=== PATIENT | female | born 1980 | race Caucasian/White ===

== ENCOUNTER 2016-09-26 19:44 | Emergency (ER) | payer BC ==
[2016-09-26 19:51] VITALS: BP 141/85
--- NOTE | 2016-09-26 23:51 | ED ---
Skin Complaint - HPI Summary HPI Summary: Pt here w/ laceration to Lt thumb while using an ax tonight. Cut tip of finger off and now has bleeding and throbbing pain. Has been applying pressure and elevating. No meds prior to arrival. Denies numbness, tingling, weakness. Imms are UTD. - History of Current Complaint Chief Complaint: EDLacSutureRecheck Time Seen by Provider: 09/26/16 21:52 Stated Complaint: LT THUMB LAC Hx Obtained From: Patient Pain Intensity: 4 - Allergy/Home Medications Allergies/Adverse Reactions: Allergies Allergy/AdvReac Type Severity Reaction Status Date / Time No Known Allergies Allergy Verified 09/26/16 20:30 PMH/Surg Hx/FS Hx/Imm Hx Previously Healthy: Yes Endocrine/Hematology History: Denies: Hx Anticoagulant Therapy, Hx Blood Disorders Infectious Disease History: No Infectious Disease History: Denies: Traveled Outside the [place] in Last 30 Days - Social History Alcohol Use: Daily Hx Substance Use: No Substance Use Type: Reports: None Hx Tobacco Use: No Smoking Status (MU): Never Smoked Tobacco Review of Systems Musculoskeletal: Other - tip of finger hurts Skin: Other - see HPI Neurological: Negative Positive: Anxious All Other Systems Reviewed And Are Negative: Yes Physical Exam Triage Information Reviewed: Yes Vital Signs On Initial Exam: Initial Vitals Temp Pulse Resp BP Pulse Ox 98.1 F 97 16 141/85 100 09/26/16 19:48 09/26/16 19:48 09/26/16 19:48 09/26/16 19:48 09/26/16 19:48 Vital Signs Reviewed: Yes Appearance: Positive: Well-Appearing, Well-Nourished, Pain Distress Skin: Positive: Warm - Lt thumb with active bleeding from avulsed tissue of Lt distal dorsal thumb Eyes: Positive: EOMI ENT: Positive: Hearing grossly normal Respiratory/Lung Sounds: Positive: Breath Sounds Present Cardiovascular: Positive: Pulses are Symmetrical in both Upper and Lower Extremities Musculoskeletal: Positive: Normal, Strength/ROM Intact Neurological: Positive: Normal, Sensory/Motor Intact - hypersensitive over Lt thumb tip, Alert, Oriented to Person Place, Time Psychiatric: Positive: Anxious Procedures - Laceration/Wound Repair 1 Location: upper extremity - Lt thumb - avulsed skin Description: Irregular - avulsion Anesthesia: Digital - bupivocaine Length, Depth and Shape: 5mm area Betadine Prep?: No Irrigated w/ Saline (ccs): 50 Laceration/Wound Explored: clean Layer Closure?: No Sterile Dressing Applied?: Yes - surgicel to control bleeding, xeroform and sterile gauze with coban pressur Diagnostics - Vital Signs Vital Signs Temp Pulse Resp BP Pulse Ox 09/26/16 20:30 98.1 F 97 16 141/85 100 09/26/16 19:48 98.1 F 97 16 141/85 100 - Laboratory Lab Statement: Any lab studies that have been ordered have been reviewed, and results considered in the medical decision making process. Re-Evaluation - Re-Evaluation First Eval Change: Improved - pain resolved s/p digital block and dressing Course/Dx - Course Course Of Treatment: Pt here w/ avulsion of Lt thumb with ax while cutting wood. Xr does not reveal renetta fracture however bone is almost exposed to outside air. IV Anbx initiated and pt agrees to complete PO anbx as well as keep dressing in place and f/u w/ hand specialist Thursday. Reviewed danger s/sx of when to return to ED. - Diagnoses Provider Diagnoses: Avulsion of skin of left thumb - Physician Notifications Discussed Care Of Patient With: Discharge - Discharge Plan Condition: Stable Disposition: HOME Prescriptions: Cephalexin CAP* [Keflex CAP*] 500 mg PO QID #38 cap Patient Education Materials: Skin Avulsion (ED) Referrals: Tesfaye Cerrato MD [Medical Doctor] - Additional Instructions: Keep dressing clean, dry and intact until seen by hand specialist. Call Thursday to schedule an appointment. Rest, ice, elevate for pain, swelling. You may take ibuprofen with food as needed for pain. *If you develop swelling, redness, streaking, purulent drainage, fever, chills, seek medical attention sooner
[2016-09-26] MEDS ORDERED: Tetan/Diph/Pertus SYR(Tdap)* 0.5 ML SYR(BOOSTRIX) use SYR IM ONE (23:54)
[2016-09-26] MEDS ORDERED: Cephalexin CAP* 500 MG PO ONE (23:54)
--- NOTE | 2016-09-27 06:42 | RAD ---
INDICATION: Avulsion of the tip of the left thumb. TECHNIQUE: 3 views of the left thumb were obtained. FINDINGS: There is a soft tissue defect adjacent to the tuft of the distal phalanx of the left thumb which appears to extend down to the bone. There are couple tiny punctate densities in the adjacent soft tissues possibly representing bony fragments or foreign bodies in or on the soft tissues. IMPRESSION: SOFT TISSUE DEFECT EXTENDING TO THE TUFT OF THE DISTAL PHALANX WITH POSSIBLE PUNCTATE FRACTURE FRAGMENTS OR FOREIGN BODIES IN OR ON THE SOFT TISSUES.
== END 2016-09-27 00:30 | disposition home or self-care (01) ==
LOC: ED 19:44
DX: S61.012A Laceration without foreign body of left thumb without damage to nail, initial encounter (principal); W27.0XXA Contact with workbench tool, initial encounter; Y92.9 Unspecified place or not applicable; Y93.89 Activity, other specified
CPT/HCPCS: 12001; 90471; 90715; 96360; 99283; A9270-GY; J0690